=== PATIENT | male | born 1985 | race Caucasian/White ===

== ENCOUNTER 2022-01-23 14:32 | Day surgery (SDC) | payer OTHER ==
[2022-01-23] MEDS ORDERED: LIDOCAINE HCL 1% 50 MG/5 ML VL PF IJ ONE (14:33)
[2022-01-23] MEDS ORDERED: BUPIVACAINE 0.5% VIAL IJ ONE (14:33)
[2022-01-23] MEDS ORDERED: Depo-Medrol 40 MG/ML IM ONE (14:33)
[2022-01-23] MEDS ORDERED: Pepcid 20 MG VIAL IV ONE (15:15)
[2022-01-23] MEDS ORDERED: Reglan 10 MG/2 ML ONE (15:15)
[2022-01-23] MEDS ORDERED: DIPRIVAN 200 MG/20 ML IV ONE (16:43)
--- NOTE | 2022-01-23 19:39 | XRAY ---
Indication: Left hip injection. Intraoperative fluoroscopy provided for 51 seconds. Single digital spot image submitted for interpretation needle tip projecting lateral to the left femur neck. Small amount of contrast injected for needle tip placement. Correlate with intraoperative findings/report.
--- NOTE | 2022-01-24 12:35 | XRAY ---
51 seconds of fluoroscopy was used in surgery for a left hip intra-articular injection.
== END 2022-01-23 17:20 | disposition home or self-care (01) ==
LOC: SDC-PAIN 14:32
PROVIDERS: ATTEND Psychiatry & Neurology Pain Medicine
DX: M16.12 Unilateral primary osteoarthritis, left hip (principal); Z79.899 Other long term (current) drug therapy
CPT/HCPCS: 20610; 73501; 77002; J1030; J2001; J2704; Q9966